=== PATIENT | female | born 1975 | race Asian ===

== ENCOUNTER 2024-12-17 16:16 | Emergency (ER) | payer OTHER, SELFPAY ==
[2024-12-17 16:22] VITALS: BP 106/56
--- NOTE | 2024-12-17 16:24 | ED.GENMED ---
ED Provider Triage
<Lou Mann PA-C - Last Filed: 12/17/24 16:26>
-
Patient seen by provider in Triage?: Seen in Triage
Attestation: A medical screening examination has been initiated by a qualified medical provider. Based on the assessment performed at this time, it has been determined that an emergent medical condition may exist and the patient has been informed
that further medical evaluation and possible additional diagnostic testing may be needed.
HPI: 49yoF here with dizziness, headache x 2 days. Feels like room is spinning, worse with position changes. C/o nausea, vomited yesterday. Also having trouble focusing with eyes. Denies double vision.
GENERAL: Alert , in no apparent distress
EYE: No visual abnormalities.
NECK: Trachea midline
ENT: No visible abnormalities.
LUNGS: No acute respiratory distress
NEUROLOGICAL: Alert and oriented
SKIN: Skin intact. No visible changes.
MUSCULOSKELETAL: Moving extremities normally
PSYCH: Normal and appropriate interaction.
This is a medical evaluation conducted in person to initiate diagnostic evaluation and provide initial therapeutics. Please see further documentation by the treating clinician.
Cardiac labs, EKG, and CT head ordered.
History of Present Illness
<Luo Mann PA-C - Last Filed: 12/17/24 16:26>
General
Chief Complaint: Dizziness
Time Seen by Provider: 12/17/24 18:24
<EDSON Escobar - Last Filed: 12/17/24 20:15>
General
Source: patient
Exam Limitations: none
History of Present Illness
History of Present Illness:
This is a 49 year old female that comes in with c/o dizziness. States that since Saturday she has had waves of dizziness that comes and goes. States that when she lays down she is dizzy. States that she has had nausea and vomiting. States that she
feels that her bilateral cheeks are numb and her eye lids are heavy. 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 States that she has also been SOB. States that the room is spinning.
Denies any fever chills, chest pain, abd pain, diarrhea, urinary burning.
Past History
<EDSON Escobar - Last Filed: 12/17/24 20:15>
Past History
ED Past Medical History: None; Negative Asthma, HTN, Hypercholesterolemia or NIDDM
ED Past Surgical History: Other (Breast implants)
Social History
Tobacco: Non-smoker
Alcohol: Occasional
Personal:
Living: with family
Employment: Employed
Review of Systems
<EDSON Escobar - Last Filed: 12/17/24 20:15>
Review of Systems
All Other Systems: ROS reviewed and negative except as documented in HPI and ROS
Constitutional: Reports no symptoms; Denies fever or chills
EENT: Reports no symptoms
Respiratory: Reports trouble breathing; Denies cough
Cardiac: Reports no symptoms; Denies chest pain
ABD/GI: Reports nausea and vomiting; Denies abdominal pain or diarrhea
: Reports no symptoms; Denies dysuria, frequency or urgency
Musculoskeletal: Reports no symptoms
Skin: Reports no symptoms
Neurological: Reports dizzy and headache
Psychiatric: Reports no symptoms
Phy Exam
<EDSON Escobar - Last Filed: 12/17/24 20:15>
General Physical Exam
General Presentation: well appearing and no apparent distress
General age: appears stated age
General Skin: warm and dry
General Habitus: normal
General Mental: alert
General Hydration: appears well hydrated
ENT Exam
ENT Exam: TM's normal, pharynx normal and neck supple
Eye Exam
Eye Exam: EOMI
Cardiovascular Exam
Cardiovascular Exam: regular rate/rhythm, no edema, no murmur and normal peripheral pulses
Pulmonary Exam
Pulmonary Exam: lungs clear, no respiratory distress, no rales, chest non tender, no crackles, no rhonchi, no wheezing and no cough
Gastrointestinal Exam
Gastrointestinal Exam: normal bowel sounds, non tender, soft, no organomegaly, no pulsatile mass and non distended
NIH Stroke Score
Level of Consciousness: 0 - Alert
LOC questions: 0-Answers both correctly
LOC Commands: 0-Performs both correctly
Best Gaze: 0-Normal
Visual Mej[place]: 0=Normal, no visual loss
Facial palsy: 0=Normal, symmetrical
Motor - Right Arm: 0=No drift 10 seconds
Motor - Left Arm: 0=No drift 10 seconds
Motor - Right Le-No drift 5 seconds
Motor - Left Le-No drift 5 seconds
Limb Ataxia: 0-Absent
Sensation: 0-Normal
Best Language: 0-No aphasia
Dysarthria: 0-Normal
Extinction and Inattention: 0-No abnormality
Total Score:: 0
Musculoskeletal Exam
Musculoskeletal Exam: full ROM and no edema
Skin Exam
Skin Exam: normal color, warm/dry, no rash and no petechia
Psychiatric Exam
Psychiatric Exam: normal mood/affect
<Marcel Dong DO - Last Filed: 12/17/24 19:36>
NIH Stroke Score
Total Score:: 0
Course
<Lou Mann PA-C - Last Filed: 12/17/24 16:26>
Orders/Labs/Results
Orders:
Orders
12/17/24 16:26
Electrocardiogram (*1) Urgent
Reason for Study: Vertigo / Dizzy
CT Head W/o Iv Contrast Urgent
Comment:
Reason For Exam: headache, dizziness
EKG- Treatment ONCE
12/17/24 16:35
Complete Blood Count/With Diff Urgent
Comprehensive Metabolic Panel Urgent
HCG, Serum Qualitative Screen Urgent
Comment: ADD ON
Troponin I Urgent
12/17/24 18:38
Meclizine [Antivert] 25 mg PO NOW STA
12/17/24 18:39
CR Chest - 2 Views Urgent
Comment:
Reason For Exam: Sob
12/17/24 18:47
Add On- LAB Urgent
Tests Added?: HCG
12/17/24 19:19
Urinalysis Reflex To Culture Urgent
Date Specimen was Collected: 12/17/24
Time Specimen was Collected: 19:15
Urine Microscopic Reflex Cult Urgent
Urine Culture Urgent
[place] Source: U
Specimen Description:
Date Specimen was Collected: 12/17/24
Time Specimen was Collected: 19:15
Abnormal Lab Results
12/17/24 12/17/24
16:35 19:19
MPV 10.5 H fL
(7.4-10.4)
Glucose 117 H mg/dl
(70-99)
Albumin 5.1 H g/dl
(3.5-5.0)
Leukocyte Esterase Rfl 2+ A
(Negative)
Urine Bacteria (Reflex) Few A
(Negative)
12/17/24 16:35
12/17/24 16:35
Vital Signs
Initial and Last Documented VS:
Initial Vital Signs
Temp Pulse Resp BP Pulse Ox
98.9 F 62 16 106/56 99
12/17/24 16:22 12/17/24 16:22 12/17/24 16:22 12/17/24 16:22 12/17/24 16:22
Last Documented Vital Signs
Temp Pulse Resp BP Pulse Ox
98.9 F 62 16 106/56 99
12/17/24 16:22 12/17/24 16:22 12/17/24 16:22 12/17/24 16:22 12/17/24 16:22
<EDSON Escobar - Last Filed: 12/17/24 20:15>
Orders/Labs/Results
Orders:
Orders
12/17/24 16:26
Electrocardiogram (*1) Urgent
Reason for Study: Vertigo / Dizzy
CT Head W/o Iv Contrast Urgent
Comment:
Reason For Exam: headache, dizziness
EKG- Treatment ONCE
12/17/24 16:35
Complete Blood Count/With Diff Urgent
Comprehensive Metabolic Panel Urgent
HCG, Serum Qualitative Screen Urgent
Comment: ADD ON
Troponin I Urgent
12/17/24 18:38
Meclizine [Antivert] 25 mg PO NOW STA
12/17/24 18:39
CR Chest - 2 Views Urgent
Comment:
Reason For Exam: Sob
12/17/24 18:47
Add On- LAB Urgent
Tests Added?: HCG
12/17/24 19:19
Urinalysis Reflex To Culture Urgent
Date Specimen was Collected: 12/17/24
Time Specimen was Collected: 19:15
Urine Microscopic Reflex Cult Urgent
Urine Culture Urgent
[place] Source: U
Specimen Description:
Date Specimen was Collected: 12/17/24
Time Specimen was Collected: 19:15
Abnormal Lab Results
12/17/24 12/17/24
16:35 19:19
MPV 10.5 H fL
(7.4-10.4)
Glucose 117 H mg/dl
(70-99)
Albumin 5.1 H g/dl
(3.5-5.0)
Leukocyte Esterase Rfl 2+ A
(Negative)
Urine Bacteria (Reflex) Few A
(Negative)
12/17/24 16:35
12/17/24 16:35
Hyperglycemia. Troponin <0.012 HCG negative, Urine negative for infection.
Vital Signs
Initial and Last Documented VS:
Initial Vital Signs
Temp Pulse Resp BP Pulse Ox
98.9 F 62 16 106/56 99
12/17/24 16:22 12/17/24 16:22 12/17/24 16:22 12/17/24 16:22 12/17/24 16:22
Last Documented Vital Signs
Temp Pulse Resp BP Pulse Ox
98.9 F 62 16 106/56 99
12/17/24 16:22 12/17/24 16:22 12/17/24 16:22 12/17/24 16:22 12/17/24 16:22
<Marcel Dong, DO - Last Filed: 12/17/24 19:36>
Orders/Labs/Results
Orders:
Orders
12/17/24 16:26
Electrocardiogram (*1) Urgent
Reason for Study: Vertigo / Dizzy
CT Head W/o Iv Contrast Urgent
Comment:
Reason For Exam: headache, dizziness
EKG- Treatment ONCE
12/17/24 16:35
Complete Blood Count/With Diff Urgent
Comprehensive Metabolic Panel Urgent
HCG, Serum Qualitative Screen Urgent
Comment: ADD ON
Troponin I Urgent
12/17/24 18:38
Meclizine [Antivert] 25 mg PO NOW STA
12/17/24 18:39
CR Chest - 2 Views Urgent
Comment:
Reason For Exam: Sob
12/17/24 18:47
Add On- LAB Urgent
Tests Added?: HCG
12/17/24 19:19
Urinalysis Reflex To Culture Urgent
Date Specimen was Collected: 12/17/24
Time Specimen was Collected: 19:15
Urine Microscopic Reflex Cult Urgent
Urine Culture Urgent
[place] Source: U
Specimen Description:
Date Specimen was Collected: 12/17/24
Time Specimen was Collected: 19:15
Abnormal Lab Results
12/17/24 12/17/24
16:35 19:19
MPV 10.5 H fL
(7.4-10.4)
Glucose 117 H mg/dl
(70-99)
Albumin 5.1 H g/dl
(3.5-5.0)
Leukocyte Esterase Rfl 2+ A
(Negative)
Urine Bacteria (Reflex) Few A
(Negative)
12/17/24 16:35
12/17/24 16:35
Vital Signs
Initial and Last Documented VS:
Initial Vital Signs
Temp Pulse Resp BP Pulse Ox
98.9 F 62 16 106/56 99
12/17/24 16:22 12/17/24 16:22 12/17/24 16:22 12/17/24 16:22 12/17/24 16:22
Last Documented Vital Signs
Temp Pulse Resp BP Pulse Ox
98.9 F 62 16 106/56 99
12/17/24 16:22 12/17/24 16:22 12/17/24 16:22 12/17/24 16:22 12/17/24 16:22
<EDSON Escobar - Last Filed: 12/17/24 20:15>
MDM/Problems Addressed
Differential Diagnosis Includes:
Vertigo, Complicated Migraines.
MDM/Problems Addressed:
This is a 49 year old female that comes in with c/o dizziness, SOB and nausea/vomiting since Saturday. States that she is dizzy when she lays down. States that it comes in waves.
Will check labs, ECG, and CT head. Will also give Antivert for dizziness.
Back to see patient. Explained that her blood work is normal. CT of the head is normal along with the Chest x-ray. Urine is negative for infection. This is most likely vertigo. Will have patient increase her water intake to 8-8oz glasses daily. Will
send a prescription for Antivert to her pharmacy. Patient to return with any concerns and follow up with the family doctor.
Chronic conditions affecting care:
NA
Acute Exacerbation and/or Progression of Chronic Illness:
NA
<EDSON Escobar - Last Filed: 12/17/24 20:15>
*Radiology
Radiology exam reviewed: preliminary read by ED provider (Chest-Breast Implants, negative for active disease. ) and radiology read reviewed (CT head-NO evidence of acute intracranial abnormality. )
*Pulse Oximetry
Patient hypoxic: no
*EKG
Interpreted by ED Provider?: Yes
Heart Rate: 57
Rate: bradycardiac
Rhythm: sinus arrhythmia
[place]: normal axis
Interval: normal interval
QRS Pattern: normal QRS
Ischemia: T-wave inversion (III, aVR, aVF, V1, V3, V4, )
*Orthopedic Nurse Practitioner Interpretation
Rate: Orthopedic Nurse Practitioner- N/A
*Critical Care Note
Total Time (30-74mins, 75-104mins- exclusive of procedures): Not Applicable
ED Attending Note
<Lou Mann PA-C - Last Filed: 12/17/24 16:26>
-
Portions of this chart may have been created with voice recognition software.� Occasional wrong word or��sound alike� substitutions may have occurred due to the inherent limitations of voice recognition software.
<Marcel Dong DO - Last Filed: 12/17/24 19:36>
ED Attending Note
Patient seen and examined by attending physician: Yes
I performed the substantive portion of visit, reviewed & personally made and approve the management plan that is documented in note by myself or NATHAN.: Yes
ED Attending Note:
I have seen and evaluated the patient with a [id number] encounter. I have spoken to the advance practicer provider and involved in the medical history, the physical exam, medical decision making.
Evaluation and management service: agree unless noted differently below.
Results interpretation: agree unless noted differently below.
Focused HPI: 49-year-old female presenting for evaluation of resolving dizziness. This occurred earlier today with certain head movements. She felt both sides of her face going numb as well
Physical exam: Sitting bed comfortably. Very mild left lateral horizontal nystagmus that is fatigable. No focal neurodeficits. Normal finger-nose bilaterally
Medical Decision Making: Blood work without clinical significance. CT head negative. Chest x-ray was performed for mild shortness of breath but chest x-ray looks clear. Patient given meclizine and we discussed likely benign paroxysmal positional
vertigo
Discharge Plan
Departure
Patient Disposition: Home (Routine Discharge)
Date of Disposition: 12/17/24
Time of Disposition: 20:06
Patient with high blood pressure during this ER visit?: No
Condition: Good
Covid-19: Not Applicable
Discharge Problem:
Vertigo
Instructions: Vertigo (a Type of Dizziness) (DC)
Prescriptions:
New
meclizine [Antivert] 50 mg tablet
50 mg PO BID PRN (Reason: dizziness) Qty: 10 0RF
Referrals:
NONE,* [Family Provider] -
Activity Restrictions/Additional Instructions:
As discussed, your blood sugar is slightly elevated. Please increase your water intake to 8-8oz glasses daily. Your CT of the head is normal and your urine is negative for infection. You have had a prescription for Antivert, the same medication you
were given here to help with the dizziness. Please follow up with the family doctor in the next 2-3 days for recheck. IF YOU HAVE INCREASED DIZZINESS, OR YOU HAVE ANY OTHER CONCERNS PLEASE RETURN TO THE EMERGENCY ROOM.
Interventions
Interventions:
*Risk Screen - Suicide Last Done: 12/17/24 16:22
*Neglect/Abuse Screening Last Done: 12/17/24 16:22
*ED COVID-19 Vaccine History Last Done: 12/17/24 16:22
Discharge Date and Time
Print Language: [id number]
[2024-12-17 16:55] LABS: % Basophils 0.5 % (0-2); % Eosinophils 1.8 % (0-6); % Immature Granulocytes 0.2 % (0-0.5); % Lymphocytes 39.5 % (20.5-51.1); % Monocytes 6.7 % (1.7-9.3); % Neutrophils 51.3 % (42.2-75.2); Absolute Eosinophils 0.1 10^3/uL (0-0.7); Absolute Lymphocytes 2.2 10^3/uL (1.2-3.4); Absolute Monocytes 0.4 10^3/uL (0.1-0.6); Absolute Neutrophils 2.8 10^3/uL (1.4-6.5); Hematocrit 38.5 % (37.0-47.0); Hemoglobin 12.7 g/dL (12.0-16.0); Mean Corpuscular Hgb 29.3 pg (27.0-31.0); Mean Corpuscular Volume 88.9 fL (81.0-99.0); Mean Platelet Volume 10.5 fL (7.4-10.4); Nucleated Red Blood Cells % 0 %; Platelet Count 188 10^3/uL (130-400); Red Blood Cell Count 4.33 10^6/uL (4.20-5.40); Red Cell Dist. Width 13.1 % (11.5-14.5); White Blood Cell Count 5.5 10^3/uL (4.8-10.8)
[2024-12-17 17:10] LABS: ALT (SGPT) 24 U/L (0-35); AST (SGOT) 33 U/L (14-36); Albumin 5.1 g/dl (3.5-5.0); Alkaline Phosphatase 92 U/L (38-126); Blood Urea Nitrogen 14 mg/dl (7-17); Calcium 9.6 mg/dl (8.4-10.2); Carbon Dioxide 27 mmol/L (22-30); Chloride 102 mmol/L (98-107); Glucose 117 mg/dl (70-99); Sodium 139 mmol/L (135-145); Total Bilirubin 0.7 mg/dl (0.2-1.3); Total Protein 7.5 g/dl (6.3-8.2); eGFR > 60.00
[2024-12-17 17:21] LABS: Troponin I < 0.012 ng/ml
[2024-12-17] MEDS: ANTIVERT 25 MG PO (19:13)
[2024-12-17 19:26] LABS: Urine Albumin Negative (Neg - Trace); Urine Bilirubin Negative (Negative); Urine Character Clear (Clear); Urine Color Yellow; Urine Glucose Negative (Negative); Urine Ketone Negative (Negative); Urine Leukocyte 2+ (Negative); Urine Nitrite Negative (Negative); Urine Occult Blood Negative (Negative); Urine Urobilinogen Negative (Neg - 1+)
[2024-12-17 19:28] LABS: HCG, Serum Qualitative Screen Negative
[2024-12-17 19:43] LABS: Urine Bacteria Few (Negative); Urine Red Blood Cell 0-2 /HPF (0-2)
== END 2024-12-17 20:33 | disposition home or self-care (01) ==
LOC: EMR 16:16
PROVIDERS: Clinical Nurse Specialist Family Health; Physician Assistant; EMERGENCY PHYSICIAN Student in an Organized Health Care Education/Training Program
DX: R42 Dizziness and giddiness (principal); Z98.82 Breast implant status
CPT/HCPCS: 99285; 70450; 71046; 80053; 81003; 81015; 84484; 84703; 85025; 87086; 93005